=== PATIENT | female | born 1985 | race Caucasian/White ===

== ENCOUNTER 2021-09-23 23:34 | Emergency (ER) | payer OTHER ==
[2021-09-23 23:56] LABS: Bilirubin Negative (Negative); Blood, Urine Negative (Negative); Clarity Clear (Clear); Glucose, Urine (Dipstick) Negative (Negative); Ketone, Urine Negative (Negative); Leukocyte Negative (Negative); Nitrite Negative (Negative); Protein, Urine (Dipstick) Negative (Neg-Trace); Urobilinogen 0.2 mg/dL (Less than 2)
[2021-09-23 23:57] LABS: Pregnancy Test - Urine (BHCG) Negative (Negative); Pregu Control Background? CLEAR/WHITE (CLR/WHITE); Pregu Control Bar Appear? YES (CONTROL BAR); Specific Gravity 1.018 (1.002-1.036)
[2021-09-24] MEDS ORDERED: Ondansetron ODT 4 MG TAB ONE (00:12)
[2021-09-24] MEDS ORDERED: Meclizine HCl 25 MG TAB ONE (00:12)
== END 2021-09-24 00:26 | disposition home or self-care (01) ==
LOC: NAV ERS 23:34
DX: R11.2 Nausea with vomiting, unspecified (principal); H81.399 Other peripheral vertigo, unspecified ear; K21.9 Gastro-esophageal reflux disease without esophagitis; I10 Essential (primary) hypertension; E78.5 Hyperlipidemia, unspecified
CPT/HCPCS: 81003; 81025; 93005; Q0162

== ENCOUNTER 2022-01-02 11:05 | Outpatient (CLI) | payer OTHER | END 2022-01-02 11:06 | disposition home or self-care (01) | LOC: NAV RAD 11:05 | PROVIDERS: ATTEND Nurse Practitioner Family | DX: M54.50 Low back pain, unspecified (principal) | CPT/HCPCS: 72100 ==

== ENCOUNTER 2023-04-07 20:05 | Emergency (ER) | payer OTHER | END 2023-04-07 21:10 | disposition home or self-care (01) | LOC: NAV ERS 20:05 | DX: J06.9 Acute upper respiratory infection, unspecified (principal); I10 Essential (primary) hypertension; Z87.891 Personal history of nicotine dependence | CPT/HCPCS: 87635; 87804; 99283 ==

== ENCOUNTER 2023-04-23 12:38 | Emergency (ER) | payer OTHER ==
[2023-04-23] MEDS ORDERED: Boostrix 0.5 ML (Tdap) VIAL (>/=7 yrs of age) ONE (15:28)
[2023-04-23] MEDS ORDERED: Rabies Immune Globulin/PF 300 UNITS/ML VIAL ONE (15:47)
[2023-04-23] MEDS ORDERED: Rabies Vaccine Human 2.5 UNITS VIAL ONE (15:47)
[2023-04-27] MEDS ORDERED: Rabies Vaccine Human 2.5 UNITS VIAL ONE (08:05)
== END 2023-04-23 16:34 | disposition home or self-care (01) ==
LOC: NAV ERS 12:38
DX: S61.452A Open bite of left hand, initial encounter (principal); I10 Essential (primary) hypertension; W54.0XXA Bitten by dog, initial encounter; Z87.891 Personal history of nicotine dependence
CPT/HCPCS: 90375; 90471; 90472; 90675; 90715; 96372

== ENCOUNTER 2023-08-27 13:06 | Emergency (ER) | payer OTHER | END 2023-08-27 13:38 | disposition home or self-care (01) | LOC: NAV ERS 13:06 | DX: S46.011A Strain of muscle(s) and tendon(s) of the rotator cuff of right shoulder, initial encounter (principal); S29.011A Strain of muscle and tendon of front wall of thorax, initial encounter; X50.1XXA Overexertion from prolonged static or awkward postures, initial encounter | CPT/HCPCS: 99283 ==

== ENCOUNTER 2023-11-17 19:00 | Emergency (ER) | payer OTHER ==
[2023-11-17 19:46] LABS: SARS-CoV-2 E Target Positive; SARS-CoV-2 N2 Target Positive; SARS-CoV-2 NAA Rapid Test DETECTED (NotDetected); SARS-CoV-2 RdRP gene Positive
== END 2023-11-17 20:26 | disposition home or self-care (01) ==
LOC: NAV ERS 19:00
DX: U07.1 COVID-19 (principal); Z87.891 Personal history of nicotine dependence
CPT/HCPCS: 87804; 99283; U0002

== ENCOUNTER 2024-02-28 17:53 | Emergency (ER) | payer OTHER ==
[~2024-02-28 17:53] MED LIST: Iopamidol 370 76% 100 ML VIAL ONE
[2024-02-28] MEDS ORDERED: Morphine 4 MG/ML VIAL ONE ×2 (18:10→19:43)
[2024-02-28] MEDS ORDERED: Acetaminophen 500 MG TAB ONE (18:10)
[2024-02-28] MEDS ORDERED: Ondansetron PF 4 MG/2 ML Vial ONE (18:10)
[2024-02-28] MEDS ORDERED: Sodium Chloride 0.9% 1,000 ML ONE (18:22)
[2024-02-28 18:55] LABS: ALT (SGPT) 40 U/L (8-55); AST (SGOT) 18 U/L (5-34); Albumin 3.6 g/dL (3.5-5.0); Alkaline Phosphatase 78 U/L (40-110); Anion Gap 14 mmol/L (10-20); BUN (Urea Nitrogen) 17 mg/dL (7.0-18.7); Bilirubin, Total 0.3 mg/dL (0.2-1.2); Calc. Creatinine Clearance 0 mL/min (70-130); Calcium 9.3 mg/dL (7.8-10.44); Carbon Dioxide 25 mmol/L (22-29); Chloride 104 mmol/L (98-107); Estimated GFR 95; Globulin 4.2 g/dL (2.4-3.5); Glucose 113 mg/dL (70-105); Lipase 25 U/L (8-78); Protein, Total 7.8 g/dL (6.0-8.3); Sodium 139 mmol/L (136-145)
[2024-02-28 18:59] LABS: #Basophils 0.2 thou/uL (0.0-0.2); #Eosinophils 0.2 thou/uL (0.0-0.7); #Lymphocytes 3.3 thou/uL (1.20-3.40); #Monocytes 0.8 thou/uL (0.11-0.59); #Neutrophils 6.2 thou/uL (1.40-6.50); %Basophils 1.6 % (0.0-1.0); %Eosinophils 2.3 % (0.0-10.0); %Lymphocytes 30.7 % (21.0-51.0); %Monocytes 7.3 % (0.0-10.0); %Neutrophils 58.1 % (42.0-75.0); Hematocrit 46.4 % (36.0-47.0); Hemoglobin 15.5 g/dL (12.0-16.0); Mean Corpuscular HGB CONC 33.4 g/dL (32.0-36.0); Mean Corpuscular Hemoglobin 30.2 pg (27.0-31.0); Mean Corpuscular Volume 90.4 fl (78.0-98.0); Mean Platelet Volume 10.1 fL (7.4-10.4); Platelet Count 315 10x3/uL (130-400); RBC Distribution Width 13.5 % (11.5-14.5); Red Blood Cell (RBC) Count 5.13 mill/uL (4.20-5.40); White Blood Cell (WBC) Count 10.7 10x3/uL (4.8-10.8)
[2024-02-28 19:01] LABS: Troponin I Less than 0.010 ng/mL (< 0.028)
[2024-02-28 19:37] LABS: BHCG - Serum Negative (NEGATIVE); Pregs Control Bar Appear? YES (CONTROL BAR)
[2024-02-28 19:41] LABS: Bilirubin Negative (Negative); Blood, Urine Negative (Negative); Clarity Clear (Clear); Glucose, Urine (Dipstick) Negative (Negative); Ketone, Urine Negative (Negative); Leukocyte Negative (Negative); Nitrite Positive (Negative); Protein, Urine (Dipstick) Negative (Neg-Trace); Specific Gravity, Urine 1.025 (1.005-1.030)
[2024-02-28 21:04] LABS: CAUTI Indications for Culture Pelvic or flank pain; RBC/HPF 0-3 HPF (0-3); WBC/HPF 0-3 HPF (0-3)
[2024-02-28 21:05] LABS: Bacteria/HPF 3+ HPF (None Seen); Epithelial Cast 0-3 LPF (None Seen); Transitional Epithelial 0-3 HPF (None Seen)
[2024-02-28 21:06] LABS: Urine Culture Reflex No No
== END 2024-02-28 21:40 | disposition home or self-care (01) ==
LOC: NAV ERS 17:53
DX: R10.13 Epigastric pain (principal); I10 Essential (primary) hypertension; Z87.891 Personal history of nicotine dependence; Z79.899 Other long term (current) drug therapy
CPT/HCPCS: 36415; 74177; 80053; 81001; 83605; 83690; 84484; 84703; 85025; 93005; 96374; 96375; 96376; J2272; J2405; J7030; Q9967

== ENCOUNTER 2024-03-18 21:20 | Emergency (ER) | payer OTHER ==
[2024-03-18 21:37] LABS: Pregnancy Test - Urine (BHCG) Negative (Negative); Pregu Control Background? CLEAR/WHITE (CLR/WHITE); Pregu Control Bar Appear? YES (CONTROL BAR)
== END 2024-03-18 21:51 | disposition home or self-care (01) ==
LOC: NAV ERS 21:20
DX: R11.0 Nausea (principal); I10 Essential (primary) hypertension; Z87.891 Personal history of nicotine dependence
CPT/HCPCS: 81025; 99283

== ENCOUNTER 2025-01-31 08:22 | Emergency (ER) | payer OTHER | END 2025-01-31 09:45 | disposition home or self-care (01) | LOC: NAV ERS 08:22 | DX: B34.9 Viral infection, unspecified (principal); I10 Essential (primary) hypertension; K21.9 Gastro-esophageal reflux disease without esophagitis; Z87.891 Personal history of nicotine dependence; Z79.899 Other long term (current) drug therapy | CPT/HCPCS: 87428; 99283 ==

== ENCOUNTER 2025-03-01 15:42 | Emergency (ER) | payer OTHER ==
[2025-03-01] MEDS ORDERED: Benzonatate 100 MG CAP ONE (16:36)
[2025-03-01] MEDS ORDERED: Ibuprofen 800 MG TAB ONE (16:36)
== END 2025-03-01 17:28 | disposition home or self-care (01) ==
LOC: NAV ERS 15:42
DX: J06.9 Acute upper respiratory infection, unspecified (principal); M79.10 Myalgia, unspecified site; I10 Essential (primary) hypertension; K21.9 Gastro-esophageal reflux disease without esophagitis; Z87.891 Personal history of nicotine dependence; Z79.899 Other long term (current) drug therapy
CPT/HCPCS: 71045; 87428

== ENCOUNTER 2025-03-08 01:38 | Emergency (ER) | payer OTHER ==
[2025-03-08] MEDS ORDERED: cloNIDine 0.1 MG TAB ONE (02:04)
[2025-03-08 03:04] LABS: Hematocrit 38.0 % (36.0-47.0); Hemoglobin 12.7 g/dL (12.0-16.0); MDiff Complete? YES; Mean Corpuscular Hemoglobin 29.0 pg (27.0-31.0); Mean Corpuscular Volume 86.7 fl (78.0-98.0); Platelet Count 418 10x3/uL (130-400); Red Blood Cell (RBC) Count 4.39 mill/uL (4.20-5.40); White Blood Cell (WBC) Count 18.1 10x3/uL (4.8-10.8)
[2025-03-08 03:15] LABS: ALT (SGPT) 165 U/L (Less than 34); AST (SGOT) 32 U/L (11-34); Albumin 3.7 g/dL (3.1-4.5); Alkaline Phosphatase 69 U/L (40-110); Anion Gap 16 mmol/L (10-20); BUN (Urea Nitrogen) 30 mg/dL (7.0-18.7); Bilirubin, Total 0.2 mg/dL (0.3-1.2); Calc. Creatinine Clearance 0 mL/min (70-130); Calcium 9.3 mg/dL (7.8-10.44); Carbon Dioxide 22 mmol/L (22-29); Chloride 107 mmol/L (98-107); Globulin 3.4 g/dL (2.4-3.5); Glucose 156 mg/dL (70-105); Potassium 4.4 mmol/L (3.5-5.1); Sodium 141 mmol/L (136-145)
[2025-03-08] MEDS ORDERED: Azithromycin 250 MG TAB ONE (04:59)
[2025-03-08] MEDS ORDERED: Iopamidol 370 76% 100 ML VIAL ONE (09:00)
== END 2025-03-08 05:07 | disposition home or self-care (01) ==
LOC: NAV ERS 01:38
DX: J18.9 Pneumonia, unspecified organism (principal); I10 Essential (primary) hypertension; K21.9 Gastro-esophageal reflux disease without esophagitis; Z79.899 Other long term (current) drug therapy; Z79.51 Long term (current) use of inhaled steroids; Z87.891 Personal history of nicotine dependence
CPT/HCPCS: 71045; 71275; 80053; 83880; 85025; 85379; Q9967